=== PATIENT | female | born 1990 | race American Indian/Alaskan Native ===

== ENCOUNTER 2016-11-27 13:33 | Emergency (ER) | payer BC, MEDICAID ==
[2016-11-27 16:11] VITALS: BP 133/78
[2016-11-27] MEDS ORDERED: Ketorolac 30 MG/ML SDV IVPUSH ONE (16:16)
[2016-11-27] MEDS ORDERED: Promethazine 25 MG/ML SDV IM ONE (16:16)
[2016-11-27] MEDS ORDERED: Sodium Chloride 0.9% 1,000 ML IV ONE (16:16)
--- NOTE | 2016-11-27 16:23 | EDM.PDOC ---
ED HPI HEADACHE COMPLAINT - General Chief Complaint: Headache Stated Complaint: [id number] MIGRAINE THROWING UP Time Seen by Provider: 11/27/16 16:18 Source of Information: Reports: Patient History Limitations: Reports: No limitations - History of Present Illness INITIAL COMMENTS - FREE TEXT/NARRATIVE: This 26 yo female patient reports to the ED with a migraine headache that started this morning. The patient reports she took ibuprofen at about noon today with little to no symptom relief. The patient has had previous similar symptoms in the past. Symptom Onset Date: 11/27/16 Timing/Duration: Reports: sudden onset Location: Reports: generalized Quality: Reports: pounding Severity: Reports: severe Context: Reports: other Associated Symptoms: Reports: denies other symptoms - Related Data Allergies/ADRs: Allergies Allergy/AdvReac Type Severity Reaction Status Date / Time No Known Allergies Allergy Verified 11/27/16 14:15 Home Meds: Home Meds Albuterol Sulfate [Albuterol Sulfate HFA] 2 inh INH ASDIRECTED 03/18/14 [History ] Albuterol [Proventil HFA] 1 puff INH QID PRN 03/18/14 [History] Vit with Ca/FA/Iron [ Plus Iron] 1 tab PO DAILY 03/18/14 [ History] QUEtiapine [SEROquel XR] 150 mg PO BEDTIME 03/18/14 [History] Acetaminophen [Tylenol] 1,000 mg PO Q4H PRN 12/10/14 [History] Ibuprofen 400 mg PO ASDIRECTED 11/27/16 [History] Mometasone/Formoterol [Dulera 100-5 MCG] 1 puff INH DAILY 11/27/16 [History] Past Medical History - Past Health History Medical/Surgical History: Denies Medical/Surgical History HEENT History: Reports: None Cardiovascular History: Reports: None Respiratory History: Reports: Asthma Gastrointestinal History: Reports: None Genitourinary History: Reports: None 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: Musculoskeletal History: Reports: None Neurological History: Reports: None Endocrine/Metabolic History: Reports: Obesity/BMI 30+ Immunologic History: Reports: None Oncologic (Cancer) History: Reports: None Dermatologic History: Reports: None Social & Family History - Family History Family Medical History: Noncontributory - Tobacco Use Smoking Status *Q: Never Smoker Second Hand Smoke Exposure: No - Caffeine Use Caffeine Use: Reports: Soda - Alcohol Use Days Per Week of Alcohol Use: 0 - Recreational Drug Use Recreational Drug Use: No - Living Situation & Occupation Living situation: Reports: , with family Occupation: employed ED ROS GENERAL - Review of Systems Review Of Systems: ROS reveals no pertinent complaints other than HPI. - Physical Exam Exam: See Below Exam Limited By: No limitations General Appearance: alert, WD/WN, moderate distress, obese Eye Exam: bilateral eye: EOMI, normal inspection, PERRL Ears: normal external exam, normal canal, hearing grossly normal, normal TMs Nose: normal inspection, normal mucosa, no blood Throat/Mouth: Normal inspection, Normal lips, Normal teeth, Normal gums, Normal oropharynx, Normal voice, No airway compromise Head Exam: atraumatic, normocephalic Neck: normal inspection, supple, non-tender, full range of motion Respiratory/Chest: no respiratory distress, lungs clear, normal breath sounds, no accessory muscle use, chest non-tender Cardiovascular: normal peripheral pulses, regular rate, rhythm, no edema, no gallop, no JVD, no murmur, no rub GI/Abdominal: normal bowel sounds, soft, non tender, no organomegaly, no distention, no abnormal bruit, no mass (Female) Exam: Deferred Rectal (Female) Exam: Deferred Neuro Exam (Abbreviated): alert, oriented, CN II-XII intact, normal cognition, normal gait, normal reflexes, no motor/sensory deficits Back Exam: normal inspection, full range of motion, NT Extremities: normal inspection, normal range of motion, non-tender, no pedal edema, normal capillary refill Psychiatric: normal affect, normal mood Skin Exam: Warm, Dry, Intact, Normal color, No rash Course - Vital Signs Last Recorded V/S: Last Vital Signs Temp 36.7 C 11/27/16 16:10 Pulse 74 11/27/16 16:10 Resp 20 11/27/16 16:10 BP 133/78 11/27/16 16:10 Pulse Ox 98 11/27/16 16:10 - Orders/Labs/Meds Orders: Active Orders 24 hr Category Date Time Status Sodium Chloride 0.9% [Normal Saline] 1,000 ml Med 11/27/16 16:16 Active IV .BOLUS Medication Orders Sodium Chloride (Normal Saline) 1,000 mls @ 999 mls/hr IV .BOLUS ONE Stop: 11/27/16 17:16 Last Admin: 11/27/16 16:29 Dose: 999 mls/hr Meds: Medications Generic Name Dose Route Start Last Admin Trade Name Lalita PRN Reason Stop Dose Admin Sodium Chloride 1,000 mls @ 999 mls/hr 11/27/16 16:16 11/27/16 16:29 Normal Saline IV 11/27/16 17:16 999 mls/hr .BOLUS ONE Administration Discontinued Medications Generic Name Dose Route Start Last Admin Trade Name Lalita PRN Reason Stop Dose Admin Ketorolac Tromethamine 30 mg 11/27/16 16:16 11/27/16 16:32 Toradol IVPUSH 11/27/16 16:17 30 mg ONETIME ONE Administration Promethazine HCl 25 mg 11/27/16 16:16 11/27/16 16:30 Phenergan IM 11/27/16 16:17 25 mg ONETIME ONE Administration Departure - Departure Time of Disposition: 17:07 Disposition: Home, Self-Care 01 Condition: fair Clinical Impression: Migraine Instructions: Migraine Headache, [id number] Forms: ED Department Discharge Care Plan Goals: The patient was advised of the examination results during the visit. The patient was given a liter of IV fluid, IV Toradol and IM Phenergan. The patient was encouraged to rest throughout the night. If the patient has any additional symptoms or concerns, the patient should follow-up with her primary care facility or return to the emergency department. - My Orders Last 24 Hours: My Active Orders 11/27/16 16:16 Sodium Chloride 0.9% [Normal Saline] 1,000 ml IV .BOLUS - Assessment/Plan Last 24 Hours: My Active Orders 11/27/16 16:16 Sodium Chloride 0.9% [Normal Saline] 1,000 ml IV .BOLUS
== END 2016-11-27 17:37 | disposition home or self-care (01) ==
LOC: DL.ED 13:33
DX: G43.909 Migraine, unspecified, not intractable, without status migrainosus (principal); J45.909 Unspecified asthma, uncomplicated; E66.9 Obesity, unspecified; Z79.899 Other long term (current) drug therapy
CPT/HCPCS: 96361; 96372; 96374; 99284; J1885; J2550; J7030

== ENCOUNTER 2017-01-18 07:20 | Emergency (ER) | payer BC ==
[2017-01-18] MEDS ORDERED: Albuterol/Ipratropium 3.0-0.5 MG/3 ML Neb Soln NEB ONE (07:22)
--- NOTE | 2017-01-18 07:22 | EDM.PDOC ---
ED HPI GENERAL MEDICAL PROBLEM - General Chief Complaint: Asthma Stated Complaint: [id number] ASTHMA ATTACK Time Seen by Provider: 01/18/17 07:21 Source of Information: Reports: Patient, Old Records, RN, RN Notes Reviewed History Limitations: Reports: No Limitations - History of Present Illness INITIAL COMMENTS - FREE TEXT/NARRATIVE: C/O asthma flare up x3 days. Pt ran out of her asthma medication and lost the tubing for her nebulizer. She reports allergies also with clear runny nose, scratchy throat, and cough with some occ. sputum. Denies fevers. Onset: Gradual Location: Reports: Chest Severity: Moderate Improves with: Reports: None Worsens with: Reports: None Associated Symptoms: Reports: No Other Symptoms - Related Data Allergies Allergy/AdvReac Type Severity Reaction Status Date / Time No Known Allergies Allergy Verified 11/27/16 14:15 Home Meds: Home Meds Albuterol Sulfate [Albuterol Sulfate HFA] 2 inh INH ASDIRECTED 03/18/14 [History ] Albuterol [Proventil HFA] 1 puff INH QID PRN 03/18/14 [History] Vit with Ca/FA/Iron [ Plus Iron] 1 tab PO DAILY 03/18/14 [ History] QUEtiapine [SEROquel XR] 150 mg PO BEDTIME 03/18/14 [History] Acetaminophen [Tylenol] 1,000 mg PO Q4H PRN 12/10/14 [History] Ibuprofen 400 mg PO ASDIRECTED 11/27/16 [History] Mometasone/Formoterol [Dulera 100-5 MCG] 1 puff INH DAILY 11/27/16 [History] Past Medical History - Past Health History Medical/Surgical History: Denies Medical/Surgical History HEENT History: Reports: None Cardiovascular History: Reports: None Respiratory History: Reports: Asthma Gastrointestinal History: Reports: None Genitourinary History: Reports: None 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: Musculoskeletal History: Reports: None Neurological History: Reports: None Endocrine/Metabolic History: Reports: Obesity/BMI 30+ Immunologic History: Reports: None Oncologic (Cancer) History: Reports: None Dermatologic History: Reports: None Social & Family History - Family History Family Medical History: Noncontributory - Tobacco Use Smoking Status *Q: Never Smoker Second Hand Smoke Exposure: No - Caffeine Use Caffeine Use: Reports: Soda - Alcohol Use Days Per Week of Alcohol Use: 0 - Recreational Drug Use Recreational Drug Use: No - Living Situation & Occupation Living situation: Reports: , with Family Occupation: Employed ED ROS GENERAL - Review of Systems Review Of Systems: ROS reveals no pertinent complaints other than HPI. ED EXAM, GENERAL - Physical Exam Exam: See Below Exam Limited By: No Limitations General Appearance: Alert, WD/WN, No Apparent Distress, Obese Eye Exam: Bilateral Eye: Normal Inspection Ears: Normal External Exam, Normal Canal, Hearing Grossly Normal, Normal TMs Nose: No Blood, Nasal Drainage (clear) Throat/Mouth: Normal Lips, Normal Teeth, Normal Gums, Normal Voice, No Airway Compromise, Other (postnasal drip, no pharyngeal erythema) Head: Atraumatic, Normocephalic Neck: Normal Inspection, Supple, Non-Tender, Full Range of Motion. No: Lymphadenopathy (L), Lymphadenopathy (R) Respiratory/Chest: No Respiratory Distress, No Accessory Muscle Use, Chest Non- Tender, Decreased Breath Sounds, Wheezing. No: Pleural Rub, Retractions, Splinting Cardiovascular: Normal Peripheral Pulses, Regular Rate, Rhythm, No Edema, No Gallop, No JVD, No Murmur, No Rub Back Exam: Normal Inspection Extremities: Normal Inspection Neurological: Alert, Oriented, CN II-XII Intact, Normal Cognition, Normal Gait, No Motor/Sensory Deficits Psychiatric: Normal Affect, Normal Mood Course - Vital Signs Last Recorded V/S: Last Vital Signs Temp 35.7 C 01/18/17 07:29 Pulse 90 01/18/17 07:29 Resp 18 01/18/17 07:29 BP 123/64 01/18/17 07:29 Pulse Ox 100 01/18/17 07:29 - Orders/Labs/Meds Orders: Active Orders 24 hr Category Date Time Status RT Aerosol Therapy [RC] ASDIRECTED Care 01/18/17 07:22 Active Azithromycin [Zithromax] Med 01/18/17 07:39 Once 500 mg PO ONETIME ONE Loratadine [Claritin] Med 01/18/17 07:39 Once 10 mg PO ONETIME ONE predniSONE Med 01/18/17 07:39 Once 60 mg PO ONETIME ONE Meds: Medications Discontinued Medications Generic Name Dose Route Start Last Admin Trade Name Freq PRN Reason Stop Dose Admin Albuterol/Ipratropium 3 ml 01/18/17 07:22 01/18/17 07:29 Duoneb 3.0-0.5 Mg/3 Ml NEB 01/18/17 07:23 3 ml ONETIME ONE Administration Departure - Departure Time of Disposition: 07:42 Disposition: Home, Self-Care 01 Condition: good Clinical Impression: Exacerbation of asthma, Has run out of medications Seasonal allergic rhinitis Qualifiers: Chronicity: acute Allergic rhinitis trigger: unspecified Qualified Code(s): J30.2 - Other seasonal allergic rhinitis - Discharge Information Instructions: Asthma, Adult Forms: ED Department Discharge Additional Instructions: Rx: Loratadine 10mg Rx: Prednisone 20mg Rx: Z-Marko 250mg Use your Albuterol by nebulizer every four hours while awake until improved. Follow up in clinic with your doctor to resolve your asthma medication insurance issue, and for recheck in the next 2 to 3 days. Return to ER if worse at any time. - My Orders Last 24 Hours: My Active Orders 01/18/17 07:22 RT Aerosol Therapy [RC] ASDIRECTED 01/18/17 07:39 Azithromycin [Zithromax] 500 mg PO ONETIME ONE Loratadine [Claritin] 10 mg PO ONETIME ONE predniSONE 60 mg PO ONETIME ONE - Assessment/Plan Last 24 Hours: My Active Orders 01/18/17 07:22 RT Aerosol Therapy [RC] ASDIRECTED 01/18/17 07:39 Azithromycin [Zithromax] 500 mg PO ONETIME ONE Loratadine [Claritin] 10 mg PO ONETIME ONE predniSONE 60 mg PO ONETIME ONE
[2017-01-18 07:31] VITALS: BP 123/64
[2017-01-18] MEDS ORDERED: predniSONE 20 MG Tab PO ONE (07:39)
[2017-01-18] MEDS ORDERED: Azithromycin 250 MG Tab PO ONE (07:39)
[2017-01-18] MEDS ORDERED: Loratadine 10 MG Tab PO ONE (07:39)
== END 2017-01-18 07:59 | disposition home or self-care (01) ==
LOC: DL.ED 07:20
DX: J45.901 Unspecified asthma with (acute) exacerbation (principal); E66.9 Obesity, unspecified; J30.2 Other seasonal allergic rhinitis; Z79.899 Other long term (current) drug therapy
CPT/HCPCS: 94640; 99284; A9270

== ENCOUNTER 2017-02-14 11:33 | Emergency (ER) | payer BC ==
[2017-02-14 11:49] VITALS: BP 125/81
[2017-02-14] MEDS ORDERED: Meclizine 12.5 MG Tab PO ONE (12:00)
--- NOTE | 2017-02-14 12:19 | EDM.PDOC ---
Scribed by Mai Caldwell 02/14/17 1211 for Amadeo Birmingham MD ED HPI GENERAL MEDICAL PROBLEM - General Chief Complaint: Head Injury Stated Complaint: [id number] CONCUSSION BOX AT [employer] FELL ON 02/13 Time Seen by Provider: 02/14/17 11:54 Source of Information: Reports: Patient, RN, RN Notes Reviewed History Limitations: Reports: No Limitations - History of Present Illness INITIAL COMMENTS - FREE TEXT/NARRATIVE: Arrives from home by POV with report of head injury sustained yesterday while shopping at [employer]. Reports an employee knocked a large box of undergarments off the top shelf, struck the patient in the head. Denies loss of consciousness , nausea or vomiting or leak of clear or bloody fluid from the nose or ears. Patient reports that she had a sudden onset of "room spin dizziness" which lasted for approximately 2 hours and occurred again this morning when she woke up. Denies any prior history of head injury. Quality: Reports: Ache Severity: Moderate Improves with: Reports: None Worsens with: Reports: None Associated Symptoms: Reports: No Other Symptoms Headache Pain Score (Numeric/FACES): 3 - Related Data Allergies Allergy/AdvReac Type Severity Reaction Status Date / Time No Known Allergies Allergy Verified 11/27/16 14:15 Home Meds: Home Meds Albuterol Sulfate [Albuterol Sulfate HFA] 2 inh INH ASDIRECTED 03/18/14 [History ] Albuterol [Proventil HFA] 1 puff INH QID PRN 03/18/14 [History] Vit with Ca/FA/Iron [ Plus Iron] 1 tab PO DAILY 03/18/14 [ History] QUEtiapine [SEROquel XR] 150 mg PO BEDTIME 03/18/14 [History] Acetaminophen [Tylenol] 1,000 mg PO Q4H PRN 12/10/14 [History] Ibuprofen 400 mg PO ASDIRECTED 11/27/16 [History] Mometasone/Formoterol [Dulera 100-5 MCG] 1 puff INH DAILY 11/27/16 [History] Past Medical History - Past Health History Medical/Surgical History: Denies Medical/Surgical History HEENT History: Reports: None Cardiovascular History: Reports: None Respiratory History: Reports: Asthma Gastrointestinal History: Reports: None Genitourinary History: Reports: None 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: Musculoskeletal History: Reports: None Neurological History: Reports: None Endocrine/Metabolic History: Reports: Obesity/BMI 30+ Immunologic History: Reports: None Oncologic (Cancer) History: Reports: None Dermatologic History: Reports: None Social & Family History - Family History Family Medical History: Noncontributory - Tobacco Use Smoking Status *Q: Never Smoker Second Hand Smoke Exposure: No - Caffeine Use Caffeine Use: Reports: Soda - Alcohol Use Days Per Week of Alcohol Use: 0 - Recreational Drug Use Recreational Drug Use: No - Living Situation & Occupation Living situation: Reports: , with Family Occupation: Employed ED ROS GENERAL - Review of Systems Review Of Systems: ROS reveals no pertinent complaints other than HPI. 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, No Motor/Sensory Deficits, Alert, Normal Mood/Affect, Oriented x 3 Skin: Normal Color, Warm/Dry Course - Vital Signs Last Recorded V/S: Last Vital Signs Temp 36.6 C 02/14/17 11:48 Pulse 80 02/14/17 11:48 Resp 16 02/14/17 11:48 BP 125/81 02/14/17 11:48 Pulse Ox 99 02/14/17 11:48 - Orders/Labs/Meds Meds: Medications Discontinued Medications Generic Name Dose Route Start Last Admin Trade Name Freq PRN Reason Stop Dose Admin Meclizine HCl 25 mg 02/14/17 12:00 02/14/17 12:07 Antivert PO 02/14/17 12:01 25 mg ONETIME ONE Administration Departure - Departure Time of Disposition: 12:00 Disposition: Home, Self-Care 01 Condition: Good Clinical Impression: Vertigo Concussion without loss of consciousness Qualifiers: Encounter type: initial encounter Qualified Code(s): S06.0X0A - Concussion without loss of consciousness, initial encounter - Discharge Information Instructions: Concussion, Adult, [id number], Vertigo, [id number] Forms: ED Department Discharge Additional Instructions: RX: Meclizine 25mg. Follow up in clinic in 3-4 days if not improved. I have read and agree with the documentation that has been completed regarding this visit. By signing this record, I attest that the documentation was completed in my physical presence and is an accurate record of the encounter.
== END 2017-02-14 12:18 | disposition home or self-care (01) ==
LOC: DL.ED 11:33
DX: S06.0X0A Concussion without loss of consciousness, initial encounter (principal); J45.909 Unspecified asthma, uncomplicated; E66.9 Obesity, unspecified; Z79.899 Other long term (current) drug therapy; W22.8XXA Striking against or struck by other objects, initial encounter
CPT/HCPCS: 99282; A9270

== ENCOUNTER 2017-05-22 05:45 | Emergency (ER) | payer BC ==
[2017-05-22] MEDS ORDERED: Sodium Chloride 0.9% 1,000 ML IV ONE (05:49)
[2017-05-22 05:51] VITALS: BP 123/73
[2017-05-22] MEDS ORDERED: Ketorolac 30 MG/ML SDV IVPUSH ONE (06:00)
[2017-05-22] MEDS ORDERED: Ondansetron 4 MG/2 ML SDV IV ONE (06:00)
--- NOTE | 2017-05-22 06:08 | EDM.PDOC ---
ED HPI GENERAL MEDICAL PROBLEM - General Chief Complaint: Headache Stated Complaint: MIGRAINE [id number] Time Seen by Provider: 05/22/17 05:58 Source of Information: Reports: Patient History Limitations: Reports: No Limitations - History of Present Illness INITIAL COMMENTS - FREE TEXT/NARRATIVE: This 27 yo female patient reports to the ED with a migraine headache. The patient reports she woke up at 0500 and noticed that she had a headache. The patient did not attempt to take any medications at home, because she "knew the ER would give her better medicine." The patient has been seen in the ED with a similar headache in the past. 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: Denies: Acetaminophen, Aspirin, NSAIDS Headache Pain Score (Numeric/FACES): 8 - Related Data Allergies Allergy/AdvReac Type Severity Reaction Status Date / Time No Known Allergies Allergy Verified 05/22/17 05:51 Home Meds: Home Meds Albuterol Sulfate [Albuterol Sulfate HFA] 2 inh INH ASDIRECTED 03/18/14 [History ] Albuterol [Proventil HFA] 1 puff INH QID PRN 03/18/14 [History] QUEtiapine [SEROquel XR] 150 mg PO BEDTIME 03/18/14 [History] Acetaminophen [Tylenol] 1,000 mg PO Q4H PRN 12/10/14 [History] Ibuprofen 400 mg PO ASDIRECTED 11/27/16 [History] Mometasone/Formoterol [Dulera 100-5 MCG] 1 puff INH DAILY 11/27/16 [History] Past Medical History - Past Health History Medical/Surgical History: Denies Medical/Surgical History HEENT History: Reports: None Cardiovascular History: Reports: None Respiratory History: Reports: Asthma Gastrointestinal History: Reports: None Genitourinary History: Reports: None 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: Musculoskeletal History: Reports: None Neurological History: Reports: None Endocrine/Metabolic History: Reports: Obesity/BMI 30+ Immunologic History: Reports: None Oncologic (Cancer) History: Reports: None Dermatologic History: Reports: None - Infectious Disease History Infectious Disease History: Reports: Chicken Pox, Hepatitis A - Past Surgical History HEENT Surgical History: Reports: Tonsillectomy, Other (See Below) Other HEENT Surgeries/Procedures: wisdom teeth, repair of hole in the ear Social & Family History - Family History Family Medical History: Noncontributory - Tobacco Use Smoking Status *Q: Never Smoker Second Hand Smoke Exposure: No - Caffeine Use Caffeine Use: Reports: Soda - Alcohol Use Days Per Week of Alcohol Use: 0 - Recreational Drug Use Recreational Drug Use: No - Living Situation & Occupation Living situation: Reports: , with Family Occupation: Employed ED ROS GENERAL - Review of Systems Review Of Systems: ROS reveals no pertinent complaints other than HPI. - Physical Exam Exam: See Below Exam Limited By: No Limitations General Appearance: Alert, WD/WN, Moderate Distress, Obese Eye Exam: Bilateral Eye: EOMI, Normal Inspection, PERRL Ears: Normal External Exam, Normal Canal, Hearing Grossly Normal, Normal TMs Nose: Normal Inspection, Normal Mucosa, No Blood Throat/Mouth: Normal Inspection, Normal Lips, Normal Teeth, Normal Gums, Normal Oropharynx, Normal Voice, No Airway Compromise Head Exam: Atraumatic, Normocephalic Neck: Normal Inspection, Supple, Non-Tender, Full Range of Motion Respiratory/Chest: No Respiratory Distress, Lungs Clear, Normal Breath Sounds, No Accessory Muscle Use, Chest Non-Tender Cardiovascular: Normal Peripheral Pulses, Regular Rate, Rhythm, No Edema, No Gallop, No JVD, No Murmur, No Rub GI/Abdominal: Normal Bowel Sounds, Soft, Non-Tender, No Organomegaly, No Distention, No Abnormal Bruit, No Mass, Other (obese) (Female) Exam: Deferred Rectal (Female) Exam: Deferred Neuro Exam (Abbreviated): Alert, Oriented, CN II-XII Intact, Normal Cognition, Normal Gait, Normal Reflexes, Other (light sensitive ) Back Exam: Normal Inspection, Full Range of Motion, NT Extremities: Normal Inspection, Normal Range of Motion, Non-Tender, No Pedal Edema, Normal Capillary Refill Psychiatric: Normal Affect, Normal Mood Skin Exam: Warm, Dry, Intact, Normal Color, No Rash Course - Vital Signs Last Recorded V/S: Last Vital Signs Temp 36.2 C 05/22/17 05:48 Pulse 89 05/22/17 05:48 Resp 18 05/22/17 05:48 BP 123/73 05/22/17 05:48 Pulse Ox 100 05/22/17 05:48 - Orders/Labs/Meds Orders: Active Orders 24 hr Category Date Time Status Sodium Chloride 0.9% [Normal Saline] 1,000 ml Med 05/22/17 05:49 Ordered IV .BOLUS Medication Orders Sodium Chloride (Normal Saline) 1,000 mls @ 999 mls/hr IV .BOLUS ONE Stop: 05/22/17 06:49 Last Admin: 05/22/17 05:56 Dose: 999 mls/hr Meds: Medications Generic Name Dose Route Start Last Admin Trade Name Freq PRN Reason Stop Dose Admin Sodium Chloride 1,000 mls @ 999 mls/hr 05/22/17 05:49 05/22/17 05:56 Normal Saline IV 05/22/17 06:49 999 mls/hr .BOLUS ONE Administration Discontinued Medications Generic Name Dose Route Start Last Admin Trade Name Freq PRN Reason Stop Dose Admin Ketorolac Tromethamine 30 mg 05/22/17 06:00 Toradol IVPUSH 05/22/17 06:01 ONETIME ONE Ondansetron HCl 4 mg 05/22/17 06:00 Zofran IV 05/22/17 06:01 ONETIME ONE Departure - Departure Time of Disposition: 06:27 Disposition: Home, Self-Care 01 Condition: Fair Clinical Impression: Migraine - Discharge Information Instructions: Recurrent Migraine Headache, [id number] Forms: ED Department Discharge Care Plan Goals: The patient was advised of the examination results during the visit. The patient was given IV fluids, IV Toradol and IV Zofran while in the ED. The patient was encouraged to take Tylenol or ibuprofen as directed at the onset of her symptoms to reduce symptoms. The patient should follow-up with her primary care facility for continued evaluation and further management of her recurrent migraine headaches. If the patient has any additional symptoms or concerns, the patient should visit her primary care facility or return to the emergency department. - My Orders Last 24 Hours: My Active Orders 05/22/17 05:49 Sodium Chloride 0.9% [Normal Saline] 1,000 ml IV .BOLUS - Assessment/Plan Last 24 Hours: My Active Orders 05/22/17 05:49 Sodium Chloride 0.9% [Normal Saline] 1,000 ml IV .BOLUS
== END 2017-05-22 06:32 | disposition home or self-care (01) ==
LOC: DL.ED 05:45
DX: G43.909 Migraine, unspecified, not intractable, without status migrainosus (principal); J45.909 Unspecified asthma, uncomplicated; Z79.899 Other long term (current) drug therapy
CPT/HCPCS: 96361; 96374; 96375; 99283; J1885; J2405; J7030

== ENCOUNTER 2018-05-04 06:06 | Emergency (ER) | payer BC ==
[2018-05-04 06:13] VITALS: BP 115/72
--- NOTE | 2018-05-04 06:52 | EDM.PDOC ---
<Carly Claire - Last Filed: 05/04/18 06:52> ED HPI GENERAL MEDICAL PROBLEM - General Chief Complaint: Lower Extremity Injury/Pain Stated Complaint: SPRAINED ANKLE [id number] Time Seen by Provider: 05/04/18 06:42 Source of Information: Reports: Patient, RN, RN Notes Reviewed History Limitations: Reports: No Limitations - History of Present Illness INITIAL COMMENTS - FREE TEXT/NARRATIVE: Pt to ER with c/o left ankle pain. She denies any trauma to the ankle. She states she was sitting on the ankle last night. Denies any other problems. Onset: Today Treatments FORMS EXAMINER: Reports: Acetaminophen Left Ankle Pain Score (Numeric/FACES): 6 - Related Data Allergies Allergy/AdvReac Type Severity Reaction Status Date / Time sulfamethoxazole AdvReac Mild yeast Verified 05/04/18 06:13 [From Bactrim] infection trimethoprim [From Bactrim] AdvReac Mild yeast Verified 05/04/18 06:13 infection Home Meds: Home Meds Albuterol Sulfate [Albuterol Sulfate HFA] 2 inh INH ASDIRECTED 03/18/14 [History ] QUEtiapine [SEROquel XR] 50 mg PO BEDTIME 03/18/14 [History] Acetaminophen [Tylenol] 1,000 mg PO Q4H PRN 12/10/14 [History] Ibuprofen 400 mg PO ASDIRECTED 11/27/16 [History] Mometasone/Formoterol [Dulera 100-5 MCG] 1 puff INH DAILY 11/27/16 [History] Lurasidone HCl [Latuda] 20 mg PO DAILY 03/10/18 [History] hydrOXYzine pamoate [Hydroxyzine Pamoate] 25 mg PO TID PRN 05/04/18 [History] Past Medical History - Past Health History Medical/Surgical History: Denies Medical/Surgical History HEENT History: Reports: None Cardiovascular History: Reports: None Respiratory History: Reports: Asthma Gastrointestinal History: Reports: None Genitourinary History: Reports: None 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: Musculoskeletal History: Reports: None Neurological History: Reports: None Endocrine/Metabolic History: Reports: Obesity/BMI 30+ Immunologic History: Reports: None Oncologic (Cancer) History: Reports: None Dermatologic History: Reports: None - Infectious Disease History Infectious Disease History: Reports: Chicken Pox, Hepatitis A - Past Surgical History HEENT Surgical History: Reports: Tonsillectomy, Other (See Below) Other HEENT Surgeries/Procedures: wisdom teeth, repair of hole in the ear Social & Family History - Family History Family Medical History: Noncontributory - Tobacco Use Smoking Status *Q: Never Smoker - Caffeine Use Caffeine Use: Reports: Soda - Recreational Drug Use Recreational Drug Use: No - Living Situation & Occupation Living situation: Reports: , with Family Occupation: Employed Review of Systems - Review of Systems Review Of Systems: ROS reveals no pertinent complaints other than HPI. ED EXAM, GENERAL - Physical Exam Exam: See Below Exam Limited By: No Limitations General Appearance: Alert, WD/WN, No Apparent Distress Eye Exam: Bilateral Eye: EOMI, Normal Inspection Ears: Normal External Exam, Hearing Grossly Normal Nose: Normal Inspection Throat/Mouth: Normal Inspection, Normal Voice, No Airway Compromise Head: Atraumatic, Normocephalic Neck: Normal Inspection, Supple, Non-Tender, Full Range of Motion Respiratory/Chest: No Respiratory Distress, Lungs Clear, Normal Breath Sounds, No Accessory Muscle Use, Chest Non-Tender Cardiovascular: Normal Peripheral Pulses, Regular Rate, Rhythm, No Edema, No Gallop, No JVD, No Murmur, No Rub Peripheral Pulses: 2+: Radial (L), Radial (R) GI/Abdominal: Normal Bowel Sounds, Soft, Non-Tender (Female) Exam: Deferred Rectal (Female) Exam: Deferred Back Exam: Normal Inspection, Full Range of Motion, NT Extremities: Normal Inspection, Joint Swelling (minimal, left ankle), Limited Range of Motion (left ankle), Other (tender, left ankle) Neurological: Alert, Oriented, Normal Cognition, Normal Gait Psychiatric: Normal Affect, Normal Mood Skin Exam: Warm, Dry, Intact, Normal Color, No Rash Lymphatic: No Adenopathy Course - Vital Signs Last Recorded V/S: Last Vital Signs Temp 36.2 C 05/04/18 06:12 Pulse 77 05/04/18 06:12 Resp 18 05/04/18 06:12 BP 115/72 05/04/18 06:12 Pulse Ox 100 05/04/18 06:12 - Orders/Labs/Meds Orders: Active Orders 24 hr Category Date Time Status Ankle Min 3V Lt [CR] Urgent Exams 05/04/18 06:45 Taken DME for Discharge [COMM] Urgent Oth 05/04/18 07:32 Ordered Departure - Departure Disposition: Home, Self-Care 01 Clinical Impression: Left ankle strain Qualifiers: Encounter type: initial encounter Qualified Code(s): S96.912A - Strain of unspecified muscle and tendon at ankle and foot level, left foot, initial encounter - Discharge Information Instructions: How to Use a Stirrup Ankle Brace, [id number], Ankle Sprain, [id number] Forms: ED Department Discharge Care Plan Goals: The patient was advised of the examination and x-ray results during the visit. The patient was placed in a stir-up ankle support. The patient was encouraged to rest, ice and elevate the injury. If the patient has any additional symptoms or concerns, the patient should follow-up with her primary care facility or return to the emergency department. - My Orders Last 24 Hours: My Active Orders 05/04/18 07:32 DME for Discharge [COMM] Urgent - Assessment/Plan Last 24 Hours: My Active Orders 05/04/18 07:32 DME for Discharge [COMM] Urgent <Tristin Raya - Last Filed: 05/04/18 07:56> Departure - Departure Time of Disposition: 07:56 Condition: Fair - Discharge Information *PRESCRIPTION DRUG MONITORING PROGRAM REVIEWED*: Not Applicable *COPY OF PRESCRIPTION DRUG MONITORING REPORT IN PATIENT JAG: Not Applicable - My Orders Last 24 Hours: My Active Orders 05/04/18 07:32 DME for Discharge [COMM] Urgent - Assessment/Plan Last 24 Hours: My Active Orders 05/04/18 07:32 DME for Discharge [COMM] Urgent
== END 2018-05-04 08:15 | disposition home or self-care (01) ==
LOC: DL.ED 06:06
DX: S96.912A Strain of unspecified muscle and tendon at ankle and foot level, left foot, initial encounter (principal); Z79.899 Other long term (current) drug therapy; Z88.1 Allergy status to other antibiotic agents; Z88.2 Allergy status to sulfonamides; X50.9XXA Other and unspecified overexertion or strenuous movements or postures, initial encounter
CPT/HCPCS: 73610-LT; 99283

== ENCOUNTER 2019-07-31 17:08 | Emergency (ER) | payer BC ==
--- NOTE | 2019-07-31 18:37 | EDM.PDOC ---
ED HPI GENERAL MEDICAL PROBLEM - General Chief Complaint: Genitourinary Problem Stated Complaint: UTI PER PT Time Seen by Provider: 07/31/19 18:25 Source of Information: Reports: Patient History Limitations: Reports: No Limitations - History of Present Illness INITIAL COMMENTS - FREE TEXT/NARRATIVE: This 29 yo female patient reports to the ED with mid lower abdominal pain with frequent urination. The patient reports she had symptoms about 1 week ago, but her symptoms went away and came back today. Onset: Today Duration: Constant, Getting Worse Location: Reports: Abdomen Quality: Reports: Other Severity: Moderate Improves with: Reports: None Worsens with: Reports: None Context: Reports: Other Associated Symptoms: Reports: No Other Symptoms - Related Data Allergies Allergy/AdvReac Type Severity Reaction Status Date / Time sulfamethoxazole AdvReac Mild yeast Verified 05/04/18 06:13 [From Bactrim] infection trimethoprim [From Bactrim] AdvReac Mild yeast Verified 05/04/18 06:13 infection Home Meds: Home Meds Albuterol Sulfate [Albuterol Sulfate HFA] 2 inh INH ASDIRECTED 03/18/14 [History ] QUEtiapine [SEROquel XR] 50 mg PO BEDTIME 03/18/14 [History] Acetaminophen [Tylenol] 1,000 mg PO Q4H PRN 12/10/14 [History] Ibuprofen 400 mg PO ASDIRECTED 11/27/16 [History] Mometasone/Formoterol [Dulera 100-5 MCG] 1 puff INH DAILY 11/27/16 [History] Lurasidone HCl [Latuda] 20 mg PO DAILY 03/10/18 [History] hydrOXYzine pamoate [Hydroxyzine Pamoate] 25 mg PO TID PRN 05/04/18 [History] Past Medical History - Past Health History Medical/Surgical History: Denies Medical/Surgical History HEENT History: Reports: None Cardiovascular History: Reports: None Respiratory History: Reports: Asthma Gastrointestinal History: Reports: None Genitourinary History: Reports: None 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: Musculoskeletal History: Reports: None Neurological History: Reports: None Endocrine/Metabolic History: Reports: Obesity/BMI 30+ Immunologic History: Reports: None Oncologic (Cancer) History: Reports: None Dermatologic History: Reports: None - Infectious Disease History Infectious Disease History: Reports: Chicken Pox, Hepatitis A - Past Surgical History HEENT Surgical History: Reports: Tonsillectomy, Other (See Below) Other HEENT Surgeries/Procedures: wisdom teeth, repair of hole in the ear Social & Family History - Family History Family Medical History: Noncontributory - Caffeine Use Caffeine Use: Reports: Soda - Living Situation & Occupation Living situation: Reports: , with Family Occupation: Employed ED ROS GENERAL - Review of Systems Review Of Systems: Comprehensive ROS is negative, except as noted in HPI. ED EXAM, RENAL/ - Physical Exam Exam: See Below Exam Limited By: No Limitations General Appearance: Alert, WD/WN, No Apparent Distress Eye Exam: Bilateral Eye: EOMI, Normal Inspection, PERRL Ears: Normal External Exam, Normal Canal, Hearing Grossly Normal, Normal TMs Nose: Normal Inspection, Normal Mucosa, No Blood Throat/Mouth: Normal Inspection, Normal Lips, Normal Teeth, Normal Gums, Normal Oropharynx, Normal Voice, No Airway Compromise Head: Atraumatic, Normocephalic Neck: Normal Inspection, Supple, Non-Tender, Full Range of Motion Respiratory/Chest: No Respiratory Distress, Lungs Clear, Normal Breath Sounds, No Accessory Muscle Use, Chest Non-Tender Cardiovascular: Normal Peripheral Pulses, Regular Rate, Rhythm, No Edema, No Gallop, No JVD, No Murmur, No Rub GI/Abdominal: Tender (lower abdomen) (Female) Exam: Deferred Rectal (Female) Exam: Deferred Back Exam: Normal Inspection, Full Range of Motion, NT Extremities: Normal Inspection, Normal Range of Motion, Non-Tender, Normal Capillary Refill, No Pedal Edema Neurological: Alert, Oriented, CN II-XII Intact, Normal Cognition, Normal Gait, Normal Reflexes, No Motor/Sensory Deficits Psychiatric: Normal Affect, Normal Mood Skin Exam: Warm, Dry, Intact, Normal Color, No Rash Lymphatic: No Adenopathy Course - Orders/Labs/Meds Orders: Active Orders 24 hr Category Date Time Status CULTURE URINE [RM] Stat Lab 07/31/19 17:20 Received Labs: Laboratory Tests 07/31/19 07/31/19 Range/Units 17:20 17:20 Urine Color Yellow (YELLOW) Urine Appearance Slightly cloudy (CLEAR) Urine pH 8.0 (5.0-9.0) Ur Specific [place] 1.025 (1.005-1.030) Urine Protein Negative (NEGATIVE) Urine Glucose (UA) Negative (NEGATIVE) Urine Ketones Negative (NEGATIVE) Urine Occult Blood Negative (NEGATIVE) Urine Nitrite Negative (NEGATIVE) Urine Bilirubin Negative (NEGATIVE) Urine Urobilinogen 1.0 (0.2-1.0) mg/dL Ur Leukocyte Esterase Trace H (NEGATIVE) Urine RBC 0-5 /HPF Urine WBC 5-10 H (0-5/HPF) /HPF Ur Epithelial Cells Many H (NOT SEEN) /HPF Urine Bacteria Few (0-FEW/HPF) /HPF Urine HCG, Qual Negative Meds: Medications Discontinued Medications Generic Name Dose Route Start Last Admin Trade Name Freq PRN Reason Stop Dose Admin Ciprofloxacin 500 mg 07/31/19 18:33 Ciprofloxacin Hcl PO 07/31/19 18:34 ONETIME ONE Departure - Departure Time of Disposition: 18:34 Disposition: Home, Self-Care 01 Condition: Fair Clinical Impression: UTI, Urinary tract infectious disease - Discharge Information *PRESCRIPTION DRUG MONITORING PROGRAM REVIEWED*: Not Applicable *COPY OF PRESCRIPTION DRUG MONITORING REPORT IN PATIENT JAG: Not Applicable Instructions: Urinary Tract Infection, Adult, [id number] Forms: ED Department Discharge Care Plan Goals: The patient was advised of the examination and lab results during the visit. The patient was given an oral dose of Cipro while in the ED. The patient was discharged with a script for Cipro (500 mg) #6 to take 1 by mouth 2 times per day for 3 days and Diflucan (150 mg) #1 to take 1 by mouth at symptom onset. If the patient has any additional symptoms or concerns, the patient should follow- up with her primary care facility or return to the emergency department. Sepsis Event Note - Focused Exam Date Exam was Performed: 07/31/19 Time Exam was Performed: 18:37 - My Orders Last 24 Hours: My Active Orders 07/31/19 17:20 CULTURE URINE [RM] Stat - Assessment/Plan Last 24 Hours: My Active Orders 07/31/19 17:20 CULTURE URINE [RM] Stat
[2019-07-31] MEDS: Ciprofloxacin 500 MG Tab PO ONE (18:38)
[2019-07-31 18:40] VITALS: BP 143/78; PULSE 78
== END 2019-07-31 18:38 | disposition home or self-care (01) ==
LOC: DL.ED 17:08
DX: N39.0 Urinary tract infection, site not specified (principal)
CPT/HCPCS: 81001; 81025; 87086; 99284; A9270

== ENCOUNTER 2019-11-26 09:26 | Emergency (ER) | payer BC, OTHER ==
[2019-11-26 09:37] VITALS: BP 148/88; PULSE 76
[2019-11-26] MEDS ORDERED: Ketorolac 30 MG/ML SDV IVPUSH ONE (09:44)
[2019-11-26] MEDS ORDERED: Sodium Chloride 0.9% 1,000 ML IV ONE (09:44)
[2019-11-26] MEDS ORDERED: Metoclopramide 10 MG/2 ML SDV IVPUSH ONE (09:44)
--- NOTE | 2019-11-26 09:50 | EDM.PDOC ---
ED HPI GENERAL MEDICAL PROBLEM - General Chief Complaint: Headache Stated Complaint: MIGRANE Time Seen by Provider: 11/26/19 09:38 Source of Information: Reports: Patient History Limitations: Reports: No Limitations - History of Present Illness INITIAL COMMENTS - FREE TEXT/NARRATIVE: This 29 yo female patient reports to the ED with a migraine headache. The patient reports she woke up at about 0330 this morning with a headache. The patient reports she attempted to go back to sleep, but woke up again at 0530 with a continued headache. The patient reports she took Naproxen (500 mg) at 0530. The patient reports she continued to have a headache at 0630 and took Tylenol (1000 mg). The patient attempted to rest, but continued to have a headache. The patient reports she does have a history of migraine headaches, but they are infrequent. The patient also reports she has seasonal allergies and is currently taking Zyrtec for symptom relief. The patient denies any current sinus pressure. Onset: Today Duration: Hour(s):, Constant Location: Reports: Head, Other Quality: Reports: Ache, Dull Severity: Moderate Improves with: Reports: None Worsens with: Reports: None Context: Reports: Other Associated Symptoms: Reports: Headaches Treatments DELIVERY ARCHITECT: Reports: Acetaminophen, NSAIDS Headache Pain Score (Numeric/FACES): 5 - Related Data Allergies Allergy/AdvReac Type Severity Reaction Status Date / Time sulfamethoxazole AdvReac Mild yeast Verified 11/26/19 09:33 [From Bactrim] infection trimethoprim [From Bactrim] AdvReac Mild yeast Verified 11/26/19 09:33 infection Home Meds: Home Meds Albuterol Sulfate [Albuterol Sulfate HFA] 2 inh INH ASDIRECTED 03/18/14 [History ] QUEtiapine [SEROquel XR] 50 mg PO BEDTIME 03/18/14 [History] Acetaminophen [Tylenol] 1,000 mg PO Q4H PRN 12/10/14 [History] Ibuprofen 400 mg PO ASDIRECTED 11/27/16 [History] Mometasone/Formoterol [Dulera 100-5 MCG] 1 puff INH DAILY 11/27/16 [History] Lurasidone HCl [Latuda] 20 mg PO DAILY 03/10/18 [History] hydrOXYzine pamoate [Hydroxyzine Pamoate] 25 mg PO TID PRN 05/04/18 [History] Naproxen [Naprosyn] 500 mg PO PRN 11/26/19 [History] Past Medical History - Past Health History Medical/Surgical History: Denies Medical/Surgical History HEENT History: Reports: Impaired Vision Cardiovascular History: Reports: None Respiratory History: Reports: Asthma Gastrointestinal History: Reports: None Genitourinary History: Reports: None 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: Musculoskeletal History: Reports: None Neurological History: Reports: Migraines Psychiatric History: Reports: Bipolar Endocrine/Metabolic History: Reports: Obesity/BMI 30+ Hematologic History: Reports: None Immunologic History: Reports: None Oncologic (Cancer) History: Reports: None Dermatologic History: Reports: None - Infectious Disease History Infectious Disease History: Reports: Chicken Pox, Hepatitis A, MRSA - Past Surgical History Head Surgeries/Procedures: Reports: None HEENT Surgical History: Reports: Tonsillectomy, Other (See Below) Other HEENT Surgeries/Procedures: wisdom teeth, repair of hole in the ear Social & Family History - Family History Family Medical History: Noncontributory - Tobacco Use Smoking Status *Q: Never Smoker - Caffeine Use Caffeine Use: Reports: Soda - Recreational Drug Use Recreational Drug Use: No - Living Situation & Occupation Living situation: Reports: , with Family Occupation: Employed ED ROS GENERAL - Review of Systems Review Of Systems: Comprehensive ROS is negative, except as noted in HPI. - Physical Exam Exam: See Below Exam Limited By: No Limitations General Appearance: Alert, WD/WN, Moderate Distress Eye Exam: Bilateral Eye: EOMI, Normal Inspection, PERRL Ears: Normal External Exam, Normal Canal, Hearing Grossly Normal, Normal TMs Nose: Normal Inspection, Normal Mucosa, No Blood Throat/Mouth: Normal Inspection, Normal Lips, Normal Teeth, Normal Gums, Normal Oropharynx, Normal Voice, No Airway Compromise Head Exam: Atraumatic, Normocephalic Neck: Normal Inspection, Supple, Non-Tender, Full Range of Motion Respiratory/Chest: No Respiratory Distress, Lungs Clear, Normal Breath Sounds, No Accessory Muscle Use, Chest Non-Tender GI/Abdominal: Normal Bowel Sounds, Soft, Non-Tender, No Organomegaly, No Distention, No Abnormal Bruit, No Mass, Other (obese) (Female) Exam: Deferred Rectal (Female) Exam: Deferred Neuro Exam (Abbreviated): Alert, Oriented, CN II-XII Intact, Normal Cognition, Normal Gait, Normal Reflexes, No Motor/Sensory Deficits Back Exam: Normal Inspection, Full Range of Motion, NT Extremities: Normal Inspection, Normal Range of Motion, Non-Tender, No Pedal Edema, Normal Capillary Refill Psychiatric: Normal Affect, Normal Mood Skin Exam: Warm, Dry, Intact, Normal Color, No Rash Course - Vital Signs Last Recorded V/S: Last Vital Signs Temp 36.5 C 11/26/19 09:34 Pulse 76 11/26/19 09:34 Resp 16 11/26/19 09:34 BP 148/88 H 11/26/19 09:34 Pulse Ox 100 11/26/19 09:34 - Orders/Labs/Meds Orders: Active Orders 24 hr Category Date Time Status Sodium Chloride 0.9% [Normal Saline] 1,000 ml Med 11/26/19 09:44 Ordered IV .BOLUS Medication Orders Sodium Chloride (Normal Saline) 1,000 mls @ 999 mls/hr IV .BOLUS ONE Stop: 11/26/19 10:44 Last Admin: 11/26/19 09:52 Dose: 999 mls/hr Meds: Medications Generic Name Dose Route Start Last Admin Trade Name Freq PRN Reason Stop Dose Admin Sodium Chloride 1,000 mls @ 999 mls/hr 11/26/19 09:44 11/26/19 09:52 Normal Saline IV 11/26/19 10:44 999 mls/hr .BOLUS ONE Administration Discontinued Medications Generic Name Dose Route Start Last Admin Trade Name Freq PRN Reason Stop Dose Admin Ketorolac Tromethamine 30 mg 11/26/19 09:44 11/26/19 09:52 Toradol IVPUSH 11/26/19 09:45 30 mg ONETIME ONE Administration Metoclopramide HCl 10 mg 11/26/19 09:44 11/26/19 09:53 Reglan IVPUSH 11/26/19 09:45 10 mg ONETIME ONE Administration Departure - Departure Time of Disposition: 10:26 Disposition: Home, Self-Care 01 Condition: Fair Clinical Impression: Migraine - Discharge Information *PRESCRIPTION DRUG MONITORING PROGRAM REVIEWED*: Not Applicable *COPY OF PRESCRIPTION DRUG MONITORING REPORT IN PATIENT JAG: Not Applicable Instructions: Migraine Headache, [id number] Forms: ED Department Discharge Care Plan Goals: The patient was advised of the examination during the visit. The patient was given IV fluids, IV Toradol and IV Reglan while in the ED with resolution of her symptoms. If the patient has any additional symptoms or concerns, the patient should either return to the emergency department or visit her primary care facility. Sepsis Event Note - Evaluation Sepsis Screening Result: No Definite Risk - Focused Exam Vital Signs: Vital Signs Temp Pulse Resp BP Pulse Ox 11/26/19 09:34 36.5 C 76 16 148/88 H 100 Date Exam was Performed: 11/26/19 Time Exam was Performed: 10:25 - My Orders Last 24 Hours: My Active Orders 11/26/19 09:44 Sodium Chloride 0.9% [Normal Saline] 1,000 ml IV .BOLUS - Assessment/Plan Last 24 Hours: My Active Orders 11/26/19 09:44 Sodium Chloride 0.9% [Normal Saline] 1,000 ml IV .BOLUS
== END 2019-11-26 10:50 | disposition home or self-care (01) ==
LOC: DL.ED 09:26
DX: G43.909 Migraine, unspecified, not intractable, without status migrainosus (principal); J45.909 Unspecified asthma, uncomplicated; F31.9 Bipolar disorder, unspecified; E66.9 Obesity, unspecified; Z88.2 Allergy status to sulfonamides; Z79.899 Other long term (current) drug therapy
CPT/HCPCS: 96374; 96375; 99283; J1885; J2765; J7030

== ENCOUNTER 2020-04-30 18:33 | Emergency (ER) | payer OTHER ==
--- NOTE | 2020-04-30 19:31 | CR ---
PROCEDURE INFORMATION: Exam: XR Left Ankle Exam date and time: 04/30/2020 7:19 PM Age: 30 years old Clinical indication: Pain; Ankle; Left; Additional info: Rolled ankle pain TECHNIQUE: Imaging protocol: XR Left ankle. Views: 3 or more views. COMPARISON: CR Ankle Min 3V Lt 05/04/2018 6:50 AM FINDINGS: Bones/joints: Question ankle effusion. There is a moderate spur at the plantar aponeurosis insertion upon the calcaneus. There is a small spur at the Achilles tendon insertion upon the calcaneus. Mild hypertrophic change involving the tip of the lateral malleolus. Talar dome is smooth. There are 2 tiny fragments at the tip of the medial malleolus. These are too small to characterize, tiny avulsion injuries cannot be excluded. Soft tissues: There is moderate diffuse soft tissue swelling. IMPRESSION: 1. Significant soft tissue swelling. Question ankle effusion. 2. 2 tiny densities identified at the tip of the medial malleolus, these may well reflect chronic processes. Tiny avulsion injuries are not ruled out. 3. Consider followup radiographs in 7-10 days, if symptoms persist.
[2020-04-30 19:37] VITALS: BP 125/60; PULSE 78
--- NOTE | 2020-04-30 19:43 | EDM.PDOC ---
ED HPI GENERAL MEDICAL PROBLEM - General Chief Complaint: Lower Extremity Injury/Pain Stated Complaint: ROLLED LEFT ANKLE Time Seen by Provider: 04/30/20 19:35 Source of Information: Reports: Patient History Limitations: Reports: No Limitations - History of Present Illness INITIAL COMMENTS - FREE TEXT/NARRATIVE: ED with c/o left outer ankle pain. States rolled ankle in hole while walking dog last night. Pain worse this alan after doing errand and walking through [employer]. One dose Naproxen this afternoon. - Related Data Allergies Allergy/AdvReac Type Severity Reaction Status Date / Time sulfamethoxazole AdvReac Mild yeast Verified 11/26/19 09:33 [From Bactrim] infection trimethoprim [From Bactrim] AdvReac Mild yeast Verified 11/26/19 09:33 infection Home Meds: Home Meds Albuterol Sulfate [Albuterol Sulfate HFA] 2 inh INH ASDIRECTED 03/18/14 [History] QUEtiapine [SEROquel XR] 50 mg PO BEDTIME 03/18/14 [History] Acetaminophen [Tylenol] 1,000 mg PO Q4H PRN 12/10/14 [History] Ibuprofen 400 mg PO ASDIRECTED 11/27/16 [History] Mometasone/Formoterol [Dulera 100-5 MCG] 1 puff INH DAILY 11/27/16 [History] Lurasidone HCl [Latuda] 20 mg PO DAILY 03/10/18 [History] hydrOXYzine pamoate [Hydroxyzine Pamoate] 25 mg PO TID PRN 05/04/18 [History] Naproxen [Naprosyn] 500 mg PO PRN 11/26/19 [History] Past Medical History - Past Health History Medical/Surgical History: Denies Medical/Surgical History HEENT History: Reports: Impaired Vision Cardiovascular History: Reports: None Respiratory History: Reports: Asthma Gastrointestinal History: Reports: None Genitourinary History: Reports: None 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: Musculoskeletal History: Reports: None Neurological History: Reports: Migraines Psychiatric History: Reports: Bipolar Endocrine/Metabolic History: Reports: Obesity/BMI 30+ Hematologic History: Reports: None Immunologic History: Reports: None Oncologic (Cancer) History: Reports: None Dermatologic History: Reports: None - Infectious Disease History Infectious Disease History: Reports: Chicken Pox, Hepatitis A, MRSA - Past Surgical History Head Surgeries/Procedures: Reports: None HEENT Surgical History: Reports: Tonsillectomy, Other (See Below) Other HEENT Surgeries/Procedures: wisdom teeth, repair of hole in the ear Social & Family History - Family History Family Medical History: Noncontributory - Caffeine Use Caffeine Use: Reports: Soda - Living Situation & Occupation Living situation: Reports: , with Family Occupation: Employed Review of Systems - Review of Systems Review Of Systems: Comprehensive ROS is negative, except as noted in HPI. ED EXAM, GENERAL - Physical Exam Exam: See Below Exam Limited By: No Limitations General Appearance: Alert, Mild Distress, Obese Ears: Normal External Exam Nose: Normal Inspection Throat/Mouth: Normal Inspection, Normal Voice Head: Atraumatic, Normocephalic Neck: Normal Inspection Respiratory/Chest: No Respiratory Distress, Normal Breath Sounds Cardiovascular: Normal Peripheral Pulses, Regular Rate, Rhythm Extremities: Limited Range of Motion (left ankle dereased flexion and internal rotation) Neurological: Alert, Oriented Psychiatric: Normal Affect, Normal Mood Skin Exam: Warm, Dry, Intact, Ecchymosis (outer left ankle) Course - Vital Signs Last Recorded V/S: Last Vital Signs Temp 97.8 F 04/30/20 19:30 Pulse 78 04/30/20 19:30 Resp 18 04/30/20 19:30 BP 125/60 04/30/20 19:30 Pulse Ox 99 04/30/20 19:30 Departure - Departure Time of Disposition: 19:40 Disposition: Home, Self-Care 01 Condition: Good Clinical Impression: Left ankle sprain Qualifiers: Encounter type: initial encounter Involved ligament of ankle: unspecified ligament Qualified Code(s): S93.402A - Sprain of unspecified ligament of left ankle, initial encounter - Discharge Information Instructions: Ankle Sprain, [id number] Forms: ED Department Discharge Additional Instructions: alternate tylenol 650mg and ibuprofen 600mg every 4 hours as needed for discomfort mansi wrap or ankle brace rest ice elevate clinic follow up one week if continued pain Sepsis Event Note (ED) - Evaluation Sepsis Screening Result: No Definite Risk - Focused Exam Vital Signs: Vital Signs Temp Pulse Resp BP Pulse Ox 04/30/20 19:30 97.8 F 78 18 125/60 99
== END 2020-04-30 19:48 | disposition home or self-care (01) ==
LOC: DL.ED 18:33
DX: S93.402A Sprain of unspecified ligament of left ankle, initial encounter (principal); E66.9 Obesity, unspecified; J45.909 Unspecified asthma, uncomplicated; F31.9 Bipolar disorder, unspecified; Z88.2 Allergy status to sulfonamides; Z68.42 Body mass index [BMI] 45.0-49.9, adult; Z79.899 Other long term (current) drug therapy; X50.1XXA Overexertion from prolonged static or awkward postures, initial encounter; Y93.01 Activity, walking, marching and hiking
CPT/HCPCS: 73610-LT; 99282; 99283-25

== ENCOUNTER 2020-06-13 19:53 | Emergency (ER) | payer OTHER ==
[2020-06-13 20:33] VITALS: BP 109/67; PULSE 86
--- NOTE | 2020-06-13 21:04 | EDM.PDOC ---
ED HPI GENERAL MEDICAL PROBLEM - General Chief Complaint: Abdominal Pain Stated Complaint: LOWER ABDOMINAL PAIN Time Seen by Provider: 06/13/20 20:50 Source of Information: Reports: Patient History Limitations: Reports: No Limitations - History of Present Illness INITIAL COMMENTS - FREE TEXT/NARRATIVE: This 30 yo female patient reports to the ED with diffuse abdominal pain that started today. The patient was seen in the [facility], was advised that she may have an appendicitis, and should go to the ED. The patient reports she was started on antibiotics for a UTI. The patient reports her pain is better, but wanted to get further testing to look for the appendicitis. Onset: Today Duration: Constant Location: Reports: Abdomen Quality: Reports: Other Severity: Moderate Improves with: Reports: None Worsens with: Reports: None Context: Reports: Other Associated Symptoms: Reports: No Other Symptoms Treatments CORPORATE SPECIALIST: Reports: Acetaminophen, NSAIDS Right Upper Abdomen Pain Score (Numeric/FACES): 4 - Related Data Allergies Allergy/AdvReac Type Severity Reaction Status Date / Time sulfamethoxazole AdvReac Mild yeast Verified 06/13/20 20:33 [From Bactrim] infection trimethoprim [From Bactrim] AdvReac Mild yeast Verified 06/13/20 20:33 infection Home Meds: Home Meds Albuterol Sulfate [Albuterol Sulfate HFA] 2 inh INH ASDIRECTED 03/18/14 [History] QUEtiapine [SEROquel XR] 100 mg PO BEDTIME 03/18/14 [History] Acetaminophen [Tylenol] 1,000 mg PO Q4H PRN 12/10/14 [History] hydrOXYzine pamoate [Hydroxyzine Pamoate] 25 mg PO TID PRN 05/04/18 [History] Naproxen [Naprosyn] 500 mg PO ASDIRECTED PRN 11/26/19 [History] Benztropine Mesylate 1.5 mg PO QPM 06/13/20 [History] Budesonide/Formoterol [Symbicort 160-4.5 MCG] 1 puff INH DAILY 06/13/20 [History] Past Medical History - Past Health History Medical/Surgical History: Denies Medical/Surgical History HEENT History: Reports: Impaired Vision Cardiovascular History: Reports: None Respiratory History: Reports: Asthma Gastrointestinal History: Reports: GERD, Helicobacter Pylori, Other (See Below) Other Gastrointestinal History: C diff Genitourinary History: Reports: None 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: Musculoskeletal History: Reports: None Neurological History: Reports: Migraines Psychiatric History: Reports: Bipolar Endocrine/Metabolic History: Reports: Obesity/BMI 30+ Hematologic History: Reports: None Immunologic History: Reports: None Oncologic (Cancer) History: Reports: None Dermatologic History: Reports: None - Infectious Disease History Infectious Disease History: Reports: C-Difficile, Chicken Pox, Helicobacter Pylori, Influenza - Past Surgical History Head Surgeries/Procedures: Reports: None HEENT Surgical History: Reports: Tonsillectomy, Other (See Below) Other HEENT Surgeries/Procedures: wisdom teeth, repair of hole in the ear Social & Family History - Family History Family Medical History: Noncontributory - Tobacco Use Tobacco Use Status *Q: Never Tobacco User Second Hand Smoke Exposure: No - Caffeine Use Caffeine Use: Reports: Soda - Recreational Drug Use Recreational Drug Use: No - Living Situation & Occupation Living situation: Reports: , with Family Occupation: Employed ED ROS GENERAL - Review of Systems Review Of Systems: Comprehensive ROS is negative, except as noted in HPI. ED EXAM, GI/ABD - Physical Exam Exam: See Below Exam Limited By: No Limitations General Appearance: Alert, WD/WN, Mild Distress, Obese Eyes: Bilateral: Normal Appearance, EOMI Ears: Normal External Exam, Normal Canal, Hearing Grossly Normal, Normal TMs Nose: Normal Inspection, Normal Mucosa, No Blood Throat/Mouth: Normal Inspection, Normal Lips, Normal Teeth, Normal Gums, Normal Oropharynx, Normal Voice, No Airway Compromise Head: Atraumatic, Normocephalic Neck: Normal Inspection, Supple, Non-Tender, Full Range of Motion Respiratory/Chest: No Respiratory Distress, Lungs Clear, Normal Breath Sounds, No Accessory Muscle Use, Chest Non-Tender Cardiovascular: Normal Peripheral Pulses, Regular Rate, Rhythm, No Edema, No Gallop, No JVD, No Murmur, No Rub GI/Abdominal Exam: Normal Bowel Sounds, Soft, Tender (diffuse right sided tenderness) (Female) Exam: Deferred Rectal (Female) Exam: Deferred Back Exam: Normal Inspection, Full Range of Motion, NT Extremities: Normal Inspection, Normal Range of Motion, Non-Tender, Normal Capillary Refill, No Pedal Edema Neurological: Alert, Oriented, CN II-XII Intact, Normal Cognition, Normal Gait, Normal Reflexes, No Motor/Sensory Deficits Psychiatric: Normal Affect, Normal Mood Skin Exam: Warm, Dry, Intact, Normal Color, No Rash Lymphatic: No Adenopathy Course - Vital Signs Last Recorded V/S: Last Vital Signs Temp 36.0 C L 06/13/20 20:25 Pulse 86 06/13/20 20:25 Resp 18 06/13/20 20:25 BP 109/67 06/13/20 20:25 Pulse Ox 100 06/13/20 20:25 - Orders/Labs/Meds Orders: Active Orders 24 hr Category Date Time Status CULTURE BLOOD [BC] Stat Lab 06/13/20 20:47 Received Labs: Laboratory Tests 06/13/20 06/13/20 06/13/20 Range/Units 20:47 20:47 20:47 WBC 7.9 (5.0-10.0) 10^3/uL RBC 4.46 (4.2-5.4) 10^6/uL Hgb 12.6 (12.0-16.0) g/dL Hct 36.8 L (37.0-47.0) % MCV 82.5 (80-100) fL MCH 28.3 (27.0-34.0) pg MCHC 34.2 (33.0-35.0) g/dL Plt Count 183 (150-450) 10^3/uL Neut % (Auto) 79.1 H (42.2-75.2) % Lymph % (Auto) 10.8 L (20.5-50.1) % [place] % (Auto) 8.9 H (2-8) % Eos % (Auto) 1.1 (1.0-3.0) % Baso % (Auto) 0.1 (0.0-1.0) % Sodium 139 (136-145) mmol/L Potassium 3.4 L (3.5-5.1) mmol/L Chloride 103 (98-107) mmol/L Carbon Dioxide 25 (21-32) mmol/L Anion Gap 14.4 H (7-13) mEq/L BUN 13 (7-18) mg/dL Creatinine 1.00 (0.55-1.02) mg/dL Est Cr Clr Drug Dosing 63.88 mL/min Estimated GFR (MDRD) > 60 BUN/Creatinine Ratio 13.0 (No establ ref range) Glucose 108 H (74-99) mg/dL Lactic Acid 1.3 (0.4-2.0) mmol/L Calcium 8.9 (8.5-10.1) mg/dL Total Bilirubin 0.5 (0.2-1.0) mg/dL AST 17 (15-37) U/L ALT 31 (14-59) U/L Alkaline Phosphatase 91 (46-116) U/L Total Protein 7.9 (6.4-8.2) g/dL Albumin 3.8 (3.4-5.0) g/dL Globulin 4.1 Albumin/Globulin Ratio 0.9 Departure - Departure Time of Disposition: 21:44 Disposition: Home, Self-Care 01 Condition: Fair Clinical Impression: Abdominal pain Qualifiers: Abdominal location: generalized Qualified Code(s): R10.84 - Generalized abdominal pain UTI (urinary tract infection) Qualifiers: Urinary tract infection type: site unspecified Hematuria presence: without hematuria Qualified Code(s): N39.0 - Urinary tract infection, site not specified - Discharge Information *PRESCRIPTION DRUG MONITORING PROGRAM REVIEWED*: Not Applicable *COPY OF PRESCRIPTION DRUG MONITORING REPORT IN PATIENT JAG: Not Applicable Instructions: Abdominal Pain, Adult, [id number] Forms: ED Department Discharge Care Plan Goals: The patient was advised of the examination and lab results during the visit. The patient was encouraged to continue to take the antibiotics as prescribed by her primary care facility. The patient should follow-up with her primary care fa cility for continued evaluation and management. If the patient has any additional symptoms or concerns, the patient should either return to the emergency department or visit her primary care facility. Sepsis Event Note (ED) - Evaluation Sepsis Screening Result: No Definite Risk - Focused Exam Vital Signs: Vital Signs Temp Pulse Resp BP Pulse Ox 06/13/20 20:25 36.0 C L 86 18 109/67 100 - My Orders Last 24 Hours: My Active Orders 06/13/20 20:47 CULTURE BLOOD [BC] Stat - Assessment/Plan Last 24 Hours: My Active Orders 06/13/20 20:47 CULTURE BLOOD [BC] Stat
[2020-06-13 21:31] LABS: ANION GAP 14.4 mEq/L (7-13); CHLORIDE,CL 103 mmol/L (98-107); SODIUM,NA 139 mmol/L (136-145)
== END 2020-06-13 22:06 | disposition home or self-care (01) ==
LOC: DL.ED 19:53
DX: N39.0 Urinary tract infection, site not specified (principal); J45.909 Unspecified asthma, uncomplicated; E66.9 Obesity, unspecified; F31.9 Bipolar disorder, unspecified; Z88.2 Allergy status to sulfonamides; Z88.1 Allergy status to other antibiotic agents; Z68.42 Body mass index [BMI] 45.0-49.9, adult
CPT/HCPCS: 36415; 80053; 83605; 85025; 87040; 99284

== ENCOUNTER 2021-05-27 17:11 | Emergency (ER) | payer OTHER ==
[2021-05-27 19:18] VITALS: BP 130/89; PULSE 81
--- NOTE | 2021-05-27 21:19 | EDM.PDOC ---
ED HPI GENERAL MEDICAL PROBLEM - General Chief Complaint: Back Pain or Injury Stated Complaint: BACK PAIN Time Seen by Provider: 05/27/21 17:30 - History of Present Illness INITIAL COMMENTS - FREE TEXT/NARRATIVE: Maia is a 31-year-old woman who comes in with concerns about possible UTI. She has had back pain now especially on the right flank, for the past 24 hours. She does not know any particular event or incident which elicited this. She has not had any hematuria or dysuria. She has had UTIs in the past, states this feels quite similar. Left Lower Back Pain Score (Numeric/FACES): 8 - Related Data Allergies Allergy/AdvReac Type Severity Reaction Status Date / Time sulfamethoxazole AdvReac Mild yeast Verified 06/13/20 20:33 [From Bactrim] infection trimethoprim [From Bactrim] AdvReac Mild yeast Verified 06/13/20 20:33 infection Home Meds: Home Meds Albuterol Sulfate [Albuterol Sulfate HFA] 2 inh INH ASDIRECTED 03/18/14 [History] QUEtiapine [SEROquel XR] 100 mg PO BEDTIME 03/18/14 [History] Acetaminophen [Tylenol] 1,000 mg PO Q4H PRN 12/10/14 [History] hydrOXYzine pamoate [Hydroxyzine Pamoate] 25 mg PO TID PRN 05/04/18 [History] Naproxen [Naprosyn] 500 mg PO ASDIRECTED PRN 11/26/19 [History] Benztropine Mesylate 1.5 mg PO QPM 06/13/20 [History] Budesonide/Formoterol [Symbicort 160-4.5 MCG] 1 puff INH DAILY 06/13/20 [History] Past Medical History - Past Health History Medical/Surgical History: Denies Medical/Surgical History HEENT History: Reports: Impaired Vision Cardiovascular History: Reports: None Respiratory History: Reports: Asthma Gastrointestinal History: Reports: GERD, Helicobacter Pylori, Other (See Below) Other Gastrointestinal History: C diff Genitourinary History: Reports: None 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: Musculoskeletal History: Reports: None Neurological History: Reports: Migraines Psychiatric History: Reports: Bipolar Endocrine/Metabolic History: Reports: Obesity/BMI 30+ Hematologic History: Reports: None Immunologic History: Reports: None Oncologic (Cancer) History: Reports: None Dermatologic History: Reports: None - Infectious Disease History Infectious Disease History: Reports: C-Difficile, Chicken Pox, Helicobacter Pylori, Influenza - Past Surgical History Head Surgeries/Procedures: Reports: None HEENT Surgical History: Reports: Tonsillectomy, Other (See Below) Other HEENT Surgeries/Procedures: wisdom teeth, repair of hole in the ear Social & Family History - Family History Family Medical History: No Pertinent Family History - Tobacco Use Tobacco Use Status *Q: Never Tobacco User - Caffeine Use Caffeine Use: Reports: None - Recreational Drug Use Recreational Drug Use: No - Living Situation & Occupation Living situation: Reports: , with Family Occupation: Employed ED ROS GENERAL - Review of Systems Review Of Systems: Comprehensive ROS is negative, except as noted in HPI. ED EXAM,LOWER BACK PAIN/INJURY - Physical Exam Exam: See Below Text/Narrative:: General: Maia is a 31-year-old woman in no acute distress Oropharynx is clear, mucous membranes are moist She has some mild right-sided CVA tenderness, but abdomen is otherwise soft and nontender to palpation Patient left a UA, and then in the course of her waiting in our ER, there was a number of traumas that presented. Maia asked to be discharged before getting her results She was called at home with the result of a positive UA, and sent a prescription for amoxicillin, 875 mg twice daily x7 days Course - Vital Signs Last Recorded V/S: Last Vital Signs Temp 98.7 F 05/27/21 18:48 Pulse 81 05/27/21 18:48 Resp 18 05/27/21 18:48 BP 130/89 05/27/21 18:48 Pulse Ox 97 05/27/21 18:48 - Orders/Labs/Meds Labs: Laboratory Tests 05/27/21 Range/Units 19:25 Urine Color Yellow (YELLOW) Urine Appearance Slightly cloudy (CLEAR) Urine pH 7.0 (5.0-9.0) Ur Specific [place] 1.025 (1.005-1.030) Urine Protein Negative (NEGATIVE) Urine Glucose (UA) Negative (NEGATIVE) Urine Ketones Negative (NEGATIVE) Urine Occult Blood Negative (NEGATIVE) Urine Nitrite Negative (NEGATIVE) Urine Bilirubin Negative (NEGATIVE) Urine Urobilinogen 0.2 (0.2-1.0) mg/dL Ur Leukocyte Esterase Small H (NEGATIVE) Urine RBC Not seen (0-5) /HPF Urine WBC 20-30 H (0-5/HPF) /HPF Ur Epithelial Cells Many H (NOT SEEN) /HPF Urine Bacteria Many H (0-FEW/HPF) /HPF Departure - Departure Time of Disposition: 23:00 Disposition: Home, Self-Care 01 Clinical Impression: UTI, Urinary tract infectious disease - Discharge Information *PRESCRIPTION DRUG MONITORING PROGRAM REVIEWED*: Not Applicable *COPY OF PRESCRIPTION DRUG MONITORING REPORT IN PATIENT JAG: Not Applicable Referrals: PCP,None [Primary Care Provider] - Forms: ED Department Discharge Sepsis Event Note (ED) - Evaluation Sepsis Screening Result: No Definite Risk - Problem List & Annotations (1) UTI (urinary tract infection) SNOMED Code(s): 08960175 Code(s): N39.0 - URINARY TRACT INFECTION, SITE NOT SPECIFIED Status: Acute Qualifiers: Urinary tract infection type: site unspecified Hematuria presence: without hematuria Qualified Code(s): N39.0 - Urinary tract infection, site not specified - Problem List Review Problem List Initiated/Reviewed/Updated: Yes - Assessment/Plan Assessment:: 1. Acute UTI Plan: 1. Amoxicillin 875 mg twice daily x7 days. She will follow-up with her primary care provider if she is not improving
== END 2021-05-27 20:37 | disposition home or self-care (01) ==
LOC: DL.ED 17:11
DX: N39.0 Urinary tract infection, site not specified (principal); J45.909 Unspecified asthma, uncomplicated; E66.9 Obesity, unspecified; Z68.43 Body mass index [BMI] 50.0-59.9, adult; Z88.2 Allergy status to sulfonamides; Z79.899 Other long term (current) drug therapy
CPT/HCPCS: 81001; 87086; 99284

== ENCOUNTER 2021-11-25 09:26 | Emergency (ER) | payer OTHER ==
[2021-11-25 09:57] VITALS: BP 112/50; PULSE 90
[2021-11-25] MEDS ORDERED: Acetaminophen 500 MG Tab PO ONE (10:22)
== END 2021-11-25 11:08 | disposition home or self-care (01) ==
LOC: DL.ED 09:26
DX: S93.402A Sprain of unspecified ligament of left ankle, initial encounter (principal); E66.9 Obesity, unspecified; Z88.1 Allergy status to other antibiotic agents; Z68.43 Body mass index [BMI] 50.0-59.9, adult; X50.1XXA Overexertion from prolonged static or awkward postures, initial encounter
CPT/HCPCS: 73610; 99283; A9270

== ENCOUNTER 2022-09-07 06:18 | Emergency (ER) | payer OTHER, BC ==
[2022-09-07 07:13] VITALS: BP 142/88; PULSE 83
[2022-09-07 08:28] LABS: ANION GAP 11.8 mEq/L (7-13)
[2022-09-07 08:29] LABS: CORONAVIRUS COVID-19 NAA NEGATIVE (NEGATIVE); RESPIRATORY SYNCYTIAL VIR NAA NEGATIVE (NEGATIVE)
== END 2022-09-07 09:06 | disposition home or self-care (01) ==
LOC: DL.ED 06:18
DX: R00.2 Palpitations (principal); G47.00 Insomnia, unspecified; D64.9 Anemia, unspecified; D72.819 Decreased white blood cell count, unspecified; E78.00 Pure hypercholesterolemia, unspecified; E66.9 Obesity, unspecified; Z68.43 Body mass index [BMI] 50.0-59.9, adult; Z88.1 Allergy status to other antibiotic agents; Z91.018 Allergy to other foods; Z79.899 Other long term (current) drug therapy; Z20.822 Contact with and (suspected) exposure to COVID-19
CPT/HCPCS: 0241U; 36415; 80053; 82150; 83690; 84443; 84484; 85025; 86140; 93005; 99285; 93010; 99284